=== PATIENT | female | born 1980 | race Caucasian/White ===

== ENCOUNTER 2021-03-26 05:34 | Inpatient (IN) | payer BC ==
[2021-03-24 16:04] LABS: BASOPHILS % 0.6 % (0.0-1.0); EOSINOPHILS # (AUTO) 0.3 (0.0-0.4); HEMATOCRIT 39.4 % (34.2-44.1); LYMPHOCYTES # (AUTO) 2.1 (1.0-3.2); LYMPHOCYTES % 29.8 % (18.0-39.1); MEAN CORPUSCULAR HEMOGLOBIN 25.8 pg (28-32); MEAN CORPUSCULAR HGB CONC 30.5 g/dL (31-35); MEAN CORPUSCULAR VOLUME 84.7 fL (81-99); MONOCYTES # (AUTO) 0.5 (0.2-0.8); MONOCYTES % 7.5 % (4.4-11.3); NEUTROPHILS # (AUTO) 4.1 (2.1-6.9); PLATELET COUNT 310 x10e3/uL (140-360); RED BLOOD COUNT 4.65 x10e6/uL (3.6-5.1); RED CELL DISTRIBUTION WIDTH 14.3 % (11.7-14.4)
[2021-03-24 16:06] LABS: CLARITY,URINE SL CLOUDY (CLEAR); COLOR,URINE YELLOW (YELLOW); KETONES,URINE NEGATIVE (NEGATIVE); LEUKOCYTE ESTERASE ,URINE NEGATIVE (NEGATIVE); NITRITE,URINE POSITIVE (NEGATIVE); PROTEIN,URINE DIPSTICK NEGATIVE (NEGATIVE); URINE UROBILINOGEN 0.2 mg/dL (0.2 - 1)
[2021-03-24 16:32] LABS: HIV 1&2 AB SCREEN NON-REACTIVE (NONREACTIVE)
[~2021-03-26] VITALS: Ht 172.7 cm; Wt 111.1 kg
[2021-03-26] MEDS ORDERED: BARIATRIC MV-I1 EACH PO (06:28)
[2021-03-26] MEDS ORDERED: CALCIUM PO (06:28)
[2021-03-26] MEDS ORDERED: FISH OIL 1,0001 EAC2 PO (06:28)
[2021-03-26] MEDS ORDERED: CEFOXITIN 1GM/0.9% NS 50ML 100 ML IV ONE (06:54)
[2021-03-26] MEDS ORDERED: BUPIVACAINE LIPOSOME/PF 266 MG/20 ML IJ ONE (09:52)
[2021-03-26] MEDS ORDERED: BISACODYL 5 MG TAB EC PO PRN (10:45)
[2021-03-26] MEDS ORDERED: BISACODYL 10 MG SUPP PR PRN (10:45)
[2021-03-26] MEDS ORDERED: ONDANSETRON HCL INJ 2MG/ML 2ML 2 MG/ML VIAL IV PRN (10:45)
[2021-03-26] MEDS ORDERED: KETOROLAC TROMETHAMINE 30 MG/ML VIAL IV PRN (10:45)
[2021-03-26] MEDS ORDERED: NALOXONE HCL INJ 0.4 MG/ML AMP IV PRN (10:45)
[2021-03-26] MEDS ORDERED: DIPHENHYDRAMINE HCL INJ 50 MG/ML VIAL IM PRN (10:45)
[2021-03-26] MEDS ORDERED: DIPHENHYDRAMINE HCL 25 MG CAP PO PRN ×2 (10:45)
[2021-03-26] MEDS ORDERED: DOCUSATE SODIUM 100 MG CAP PO PRN (10:45)
[2021-03-26] MEDS: HYDROMORPHONE 0.2MG/ML-SOD CHL 30ML PCA SYRINGE IV PRN ×2 (11:00→21:31)
[2021-03-26] MEDS ORDERED: SEVOFLURANE INHAL SOLN 250 ML PEN BTL ONE (12:44)
[2021-03-26] MEDS ORDERED: ONDANSETRON HCL INJ 2MG/ML 2ML 2 MG/ML VIAL ONE (12:44)
[2021-03-26] MEDS ORDERED: POVIDONE IODINE 0.05% 0.05 % ML PO ONE (12:44)
[2021-03-26] MEDS ORDERED: METOCLOPRAMIDE HCL 10 MG/2ML VIAL ONE (12:44)
[2021-03-26] MEDS ORDERED: PROPOFOL IV EMULSION 10 MG/ML 20 ML VIAL ONE (12:44)
[2021-03-26] MEDS ORDERED: LIDOCAINE HCL 2% LOCAL INJ 5 ML SDV VIAL INJ ONE (12:44)
[2021-03-26] MEDS ORDERED: DEXAMETHASONE SOD PHOS INJ 4 MG/ML SDV ONE (12:44)
[2021-03-26] MEDS ORDERED: ROCURONIUM BROMIDE 10 MG/ML 5ML VIAL IV ONE (12:44)
[2021-03-26] MEDS ORDERED: FENTANYL CITRATE/PF 100MCG/2 ML INJ ONE (12:58)
[2021-03-26] MEDS ORDERED: KETAMINE HCL INJ 50 MG/ML 10 ML VIAL ONE (12:58)
[2021-03-26] MEDS ORDERED: MIDAZOLAM HCL 2 MG/2 ML VIAL ONE (12:58)
[2021-03-26 13:00] VITALS: BP 113/62
[2021-03-26] MEDS ORDERED: DEXTROSE 5%/LACTATED RINGERS 1,000 ML IV ONE (14:30)
[2021-03-26 14:38] VITALS: BP 113/62
[2021-03-26 15:47] VITALS: BP 117/67
[2021-03-26] MEDS: ONDANSETRON HCL INJ 2MG/ML 2ML 2 MG/ML VIAL IV PRN (19:00)
[2021-03-26] MEDS: Cefoxitin 2 G in SODIUM CHLORIDE 0.9% 100 ML IV SCH (20:00)
[2021-03-26 20:13] VITALS: BP 119/64
[2021-03-26] MEDS ORDERED: ZOLPIDEM TARTRATE 5 MG TAB PO PRN (21:00)
[2021-03-26 22:14] VITALS: BP 119/64
[2021-03-27] VITALS (8 sets, daily range): BP systolic 105–127; BP diastolic 53–76
[2021-03-27] MEDS: Cefoxitin 2 G in SODIUM CHLORIDE 0.9% 100 ML IV SCH ×3 (02:00→14:12)
[2021-03-27] MEDS: ONDANSETRON HCL INJ 2MG/ML 2ML 2 MG/ML VIAL IV PRN (02:35)
[2021-03-27 06:08] LABS: BASOPHILS % 0.3 % (0.0-1.0); EOSINOPHILS % 0.2 % (0.0-6.0); HEMOGLOBIN 11.5 g/dL (12.0-16.0); LYMPHOCYTES # (AUTO) 1.8 (1.0-3.2); LYMPHOCYTES % 15.2 % (18.0-39.1); MEAN CORPUSCULAR HEMOGLOBIN 25.7 pg (28-32); MEAN CORPUSCULAR HGB CONC 29.5 g/dL (31-35); MEAN CORPUSCULAR VOLUME 87.2 fL (81-99); MONOCYTES % 7.9 % (4.4-11.3); NEUTROPHILS # (AUTO) 9.2 (2.1-6.9); NEUTROPHILS % 76.2 % (38.7-80.0); PLATELET COUNT 265 x10e3/uL (140-360); RED BLOOD COUNT 4.47 x10e6/uL (3.6-5.1)
[2021-03-27] MEDS ORDERED: SODIUM CHLORIDE 0.9% 250ML 250 ML ONE (06:37)
[2021-03-27 07:49] LABS: ANION GAP 12.4 mmol/L (8-16); CALCIUM 8.1 mg/dL (8.4-10.2); CREATININE, SERUM 0.67 mg/dL (0.57-1.11); POTASSIUM 4.4 mmol/L (3.5-5.1)
[2021-03-27] MEDS ORDERED: DEXTROSE 5%/LACTATED RINGERS 1,000 ML IV SCH (08:45)
[2021-03-27] MEDS ORDERED: HYDROCODONE/APAP 5MG-325MG TAB PO PRN (09:30)
[2021-03-27] MEDS ORDERED: KETOROLAC TROMETHAMINE 30 MG/ML VIAL IV PRN (09:30)
[2021-03-27] MEDS ORDERED: KETOROLAC TROMETHAMINE 30 MG/ML VIAL IM PRN (14:45)
[2021-03-27] MEDS: HYDROCODONE/APAP 5MG-325MG TAB PO PRN ×2 (17:46→21:56)
[2021-03-27] MEDS ORDERED: AZITHROMYCIN 250 MG TAB PO ONE (20:00)
[2021-03-28 00:25] VITALS: BP 105/56
[2021-03-28] MEDS: HYDROCODONE/APAP 5MG-325MG TAB PO PRN ×3 (04:07→13:49)
[2021-03-28 05:34] VITALS: BP 123/74
[2021-03-28 08:07] VITALS: BP 111/64
[2021-03-28 08:26] VITALS: BP 111/64
[2021-03-28] MEDS ORDERED: ONDANSETRON HCL 4 MG ORAL DISINTEGRATING TAB PO PRN (08:45)
[2021-03-28 11:48] VITALS: BP 116/78
[2021-03-28 15:30] VITALS: BP 116/74
[2021-03-28] MEDS ORDERED: Tylenol #3 PO (15:40)
[2021-03-28] MEDS ORDERED: COLACE100 MG PO (15:41)
== END 2021-03-28 16:32 | disposition home or self-care (01) | DRG 743 ==
LOC: OR 05:34 → PACU V 11:49 → MED/SURG 13:44
PROVIDERS: ADMIT Specialist; ATTEND Specialist
PROC: 0UB50ZZ Excision of Right Fallopian Tube, Open Approach (ICD-10-PCS; 2021-03-26)
PROC: 0UT00ZZ Resection of Right Ovary, Open Approach (ICD-10-PCS; 2021-03-26)
PROC: 0U5M0ZZ Destruction of Vulva, Open Approach (ICD-10-PCS; 2021-03-26)
PROC: 0UT90ZZ Resection of Uterus, Open Approach (ICD-10-PCS; principal; 2021-03-26 07:30)
DX: N80.0 Endometriosis of uterus (principal); N99.4 Postprocedural pelvic peritoneal adhesions; A63.0 Anogenital (venereal) warts; Z20.822 Contact with and (suspected) exposure to COVID-19
CPT/HCPCS: 36415; 71046; 80048; 81003; 84702; 85025; 86850; 86900; 87390; 88304; 88305; 88307; 93005; G0433; G0435; J0694; J1100; J1200; J1885; J2001; J2250; J2405; J2765; J3010; J7050; U0002